=== PATIENT | male | born 1990 | race African-American/Black ===

== ENCOUNTER 2024-10-03 16:46 | Emergency (ER) | payer OTHER ==
[~2024-10-03] VITALS: Ht 167.6 cm; Wt 69.0 kg
[2024-10-03 16:59] VITALS: O2SAT 100
[2024-10-03 17:17] LABS: GLUCOSE URINE NEGATIVE (NEGATIVE); KETONES URINE NEGATIVE (NEGATIVE); LEUKOCYTE ESTERASE URINE NEGATIVE (NEGATIVE); NITRITE URINE NEGATIVE (NEGATIVE); OCCULT BLOOD URINE NEGATIVE (NEGATIVE); PH URINE 7.5 (4.5-8.0); PROTEIN URINE NEGATIVE (NEGATIVE); SPECIFIC GRAVITY URINE 1.019 (1.005-1.030)
[2024-10-03] MEDS: CEFTRIAXONE SODIUM 500MG VIAL IM ONE (17:54)
[2024-10-03 18:08] LABS: CLARITY URINE CLOUDY (CLEAR); COLOR URINE STRAW (YELLOW)
[2024-10-03 18:09] LABS: AMORPHOUS SEDIMENT URINE 3+ /lpf; BACTERIA URINE NONE SEEN; RBC URINE NONE SEEN /hpf (0-2); SQUAMOUS EPITHELIAL CELL URINE RARE /lpf (RARE/1+); WBC URINE NONE SEEN /hpf (0-2)
[2024-10-03] MEDS ORDERED: DOXY100T2 MT (18:13)
[2024-10-03 18:42] VITALS: BP 132/79; PULSE 61; RESP 18; TEMP 36.7; O2SAT 100
[2024-10-06 09:12] LABS: CHLAMYDIA TRACHOMATIS NAA Negative (Negative); NEISSERIA GONORRHOEAE NAA Negative (Negative)
== END 2024-10-03 19:14 | disposition home or self-care (01) ==
LOC: ER 16:46
DX: N39.0 Urinary tract infection, site not specified (principal); R35.0 Frequency of micturition; Z11.3 Encounter for screening for infections with a predominantly sexual mode of transmission; Z11.8 Encounter for screening for other infectious and parasitic diseases; Z79.899 Other long term (current) drug therapy
CPT/HCPCS: 99283; 87491; 87591; 81003; 96372; J0696